=== PATIENT | female | born 1945 | race Caucasian/White ===

== ENCOUNTER 2018-01-15 20:11 | Emergency (ER) | payer MEDICARE, BC ==
[2018-01-15 20:33] VITALS: RESP 18; TEMP 97.3
[2018-01-15] MEDS ORDERED: CEPHALEXIN 250 MG/5 ML BOTTLE PO ONE (20:58)
[2018-01-15] MEDS ORDERED: CEPHALEXIN 250 MG/5 ML BOTTLE ONE (21:00)
[2018-01-15 21:26] VITALS: BP 161/92; PULSE 83; O2SAT 98
== END 2018-01-15 21:18 | disposition home or self-care (01) | DRG 603 ==
LOC: ED 20:11
DX: L03.114 Cellulitis of left upper limb (principal); L03.113 Cellulitis of right upper limb
CPT/HCPCS: 99282; 99283; A9270-GY

== ENCOUNTER 2018-07-14 14:31 | Emergency (ER) | payer MEDICARE, OTHER ==
[2018-07-14 15:17] VITALS: RESP 16; TEMP 97.2
[2018-07-14 15:32] VITALS: BP 163/107; PULSE 74; O2SAT 93
== END 2018-07-14 15:28 | disposition home or self-care (01) | DRG 153 ==
LOC: ED 14:31
DX: J32.9 Chronic sinusitis, unspecified (principal)
CPT/HCPCS: 99282